=== PATIENT | female | born 1985 | race Caucasian/White ===

== ENCOUNTER 2016-08-09 08:17 | Emergency (ER) | payer SELFPAY ==
[2016-08-09 08:29] VITALS: TEMP 98.3; BMI 28.7
[2016-08-09] MEDS ORDERED: NS 1,000 ML IV ONE ×2 (09:10→10:28)
[2016-08-09] MEDS ORDERED: ONDANSETRON HCL 4 MG/2 ML VIAL IV STA (09:10)
[2016-08-09] MEDS ORDERED: SODIUM CHLORIDE 0.9% 3 ML FLUSH FLUSH PRN (09:10)
--- NOTE | 2016-08-09 09:29 | EDPRACDOC ---
- General Information Chief Complaint: Nausea,Vomiting,Diarrhea Stated Complaint: VOMITING Time Seen by Provider: 08/09/16 09:03 Information Source: Patient Home Medications: Home Medications Nitrofurantoin [Macrobid] 100 mg PO BID #10 capsule 08/09/16 Ondansetron HCl [Zofran] 4 mg PO Q6H PRN #15 tab 08/09/16 Allergies/Adverse Reactions: Allergies Allergy/AdvReac Type Severity Reaction Status Date / Time No Known Allergies Allergy Verified 08/09/16 08:29 - History of Present Illness Onset: 3 DAYS HPI: PT PRESENTS WITH PERSISTENT NAUSEA AND VOMITING. APPROXIMATELY 8 WEEKS . Symptoms Occured: Reports: Spontaneous Duration: Reports: Episodes of Vomiting Pain Quality: Reports: Aching Pain Severity: Moderate Pain Location: Reports: Epigastric : Yes History of: Denies: UTI, Ectopic, PID, Urolithiasis Associated Signs & Symptoms: Reports: Nausea, Vomiting. Denies: Diarrhea, Fever ED Past Medical History - History Reviewed Yes Nurses notes reviewed and agree except as marked - Patient Medical History GI/ History: Denies: Urinary Tract Infection Psychological History: Denies: Depression Systemic History: Denies: Cancer Surgical History: Reports: Cholecystectomy. Denies: Hysterectomy - Social Medical History Smoking Status: Never smoker Lives In: Home EDM Review of Systems - Review of Systems ROS Negative Except as Marked: Yes All systems reviewed and were negative except as marked Constitutional: Fatigue. negative: Fever Respiratory: negative: Shortness of Breath Cardiovascular: negative: Chest Pain Gastrointestinal: Nausea, Pain, Vomiting Genitourinary: (8 WEEKS). negative: Dysuria - Physical Exam Constitutional: Alert Oriented to: Time, Person, Place Last recorded Vital Signs: Last Vital Signs Temp 98.3 F 08/09/16 08:26 Pulse 98 08/09/16 08:26 Resp 18 08/09/16 08:26 BP 126/68 08/09/16 08:26 Pulse Ox 100 08/09/16 08:26 Oxygen Pulse Oxygen Saturation 100 O2 Device Room Air Oxygen Flow Rate Fraction of Inspired Oxygen ( FIO2) - HEENT Head: negative: Deformity, Laceration Eye Exam: negative: Conjunctival Injection, Pale Conjunctiva Oropharynx: negative: Membranes Dry Nose: negative: Congestion, Discharge Neck: negative: Limited ROM - Respiratory/Cardiovascular Respiratory: Normal - CTA. negative: Accessory Muscle Use, Diminished, Tachypnea Cardiovascular: negative: Bradycardia, Tachycardia, Irregular - GI Auscultation: Normal Palpation: Normal Tenderness: Mild, Epigastric. negative: Guarding, Rebound, Rigidity - Musculoskeletal Extremities: Radial Pulse (PALPABLE). negative: Calf Tenderness, Pedal Edema - Integumentary Skin: Warm, Dry. negative: Rash - Neurologic Memory Impaired: Normal Motor Function: Normal Mood Description: Anxious, Appropriate Thought: Coherent Perception: Normal - Results 08/09/16 09:25 08/09/16 09:25 Decision Time to Discharge: 11:13 - Departure Yes I personally saw and evaluated the patient. Disposition: Home Condition: Improved Final Diagnosis: Nausea and vomiting UTI (urinary tract infection) Qualifiers: Urinary tract infection type: site unspecified Hematuria presence: without hematuria Qualified Code(s): N39.0 - Urinary tract infection, site not specified Instructions: Acute Nausea and Vomiting (ED), Urinary Tract Infection in Women (ED), Dysuria Education/Counseling Given To: Patient Education/Counseling Given Regarding: Diagnosis, Treatment, Prognosis, Follow Up Referrals: None,No Provider [Primary Care Provider] - One Week Lilliam Valdovinos DO [Staff Physician] - As Needed Prescriptions: Nitrofurantoin [Macrobid] 100 mg PO BID #10 capsule Ondansetron HCl [Zofran] 4 mg PO Q6H PRN #15 tab PRN Reason: Nausea/Vomiting
[2016-08-09 09:42] LABS: AUTOMATED BASOPHIL 0.4 % (0-2); AUTOMATED EOSINOPHIL 0.3 % (0-5); AUTOMATED MONOCYTE 8.1 % (3-10); AUTOMATED NEUTROPHIL 80.2 % (45-76); MPV 8.1 fL (7.4-10.4)
[2016-08-09 09:58] LABS: BLOOD UREA NITROGEN 10 MG/DL (7-17); CALCIUM 9.6 MG/DL (8.4-10.2); CALCULATED OSMOLALITY 260 MOs/Kg (270-290); CHLORIDE 102 mEq/L (98-107); GLUCOSE 82 MG/DL (70-99); SODIUM LEVEL 136 mEq/L (137-146); TOTAL PROTEIN 8.7 G/DL (6.3-8.2)
[2016-08-09 10:19] LABS: LEUKOCYTES/URINE NEG (NEGATIVE); NITRITE/URINE NEG (NEGATIVE); URINE OCCULT BLOOD 2+ (NEG/TRACE)
[2016-08-09] MEDS ORDERED: NITROFURANTOIN 100 MG CAP PO ONE (10:28)
[2016-08-09 12:10] VITALS: BP 120/71; PULSE 85
[2016-08-09] MEDS ORDERED: SODIUM CHLORIDE 0.9% 3 ML FLUSH FLUSH SCH (18:00)
== END 2016-08-09 12:10 | disposition home or self-care (01) ==
LOC: ED 08:17
DX: N39.0 Urinary tract infection, site not specified (principal); R11.2 Nausea with vomiting, unspecified
CPT/HCPCS: 36415; 80053; 81001; 83690; 85025; 96361; 96374; 99283; J2405; J3490